=== PATIENT | male | born 1990 | race African-American/Black ===

== ENCOUNTER 2016-06-03 21:27 | Emergency (ER) | payer OTHER ==
[~2016-06-03] VITALS: Ht 177.8 cm; Wt 70.3 kg
[2016-06-03 21:33] VITALS: BP 134/90
[2016-06-03] MEDS ORDERED: NORCO 5-325 TA1 EACH PO (22:10)
== END 2016-06-03 22:23 | disposition home or self-care (01) ==
LOC: ER 21:27
DX: M25.521 Pain in right elbow (principal); F17.210 Nicotine dependence, cigarettes, uncomplicated; F12.10 Cannabis abuse, uncomplicated; W13.0XXA Fall from, out of or through balcony, initial encounter; Y93.89 Activity, other specified; Y92.89 Other specified places as the place of occurrence of the external cause; Y99.8 Other external cause status

== ENCOUNTER 2021-05-27 12:58 | Emergency (ER) | payer BC ==
[~2021-05-27] VITALS: Ht 177.8 cm; Wt 70.3 kg
[~2021-05-27 12:58] MED LIST: NORCO 5-325 TA1 EACH PO
[2021-05-27 13:02] VITALS: BP 136/69
--- NOTE | 2021-05-28 11:39 | NUR ---
PATIENT CALLED [facility] REGARDING COVID RESULT. NOTIFIED PATIENT OF POSITIVE RESULT. NO OTHER QUESTIONS OR NEEDS FROM US AT THIS TIME
== END 2021-05-27 13:10 | disposition home or self-care (01) ==
LOC: ER 12:58
PROVIDERS: Nurse Practitioner Family
DX: Z20.822 Contact with and (suspected) exposure to COVID-19 (principal); F17.210 Nicotine dependence, cigarettes, uncomplicated; Z98.890 Other specified postprocedural states; Z79.899 Other long term (current) drug therapy